=== PATIENT | female | born 1935 | race Caucasian/White ===

== ENCOUNTER 2019-07-25 02:37 | Outpatient (CLI) | payer MEDICARE, OTHER, SELFPAY ==
[2019-07-25 13:32] LABS: Hemoglobin A1C 5.7 % (3.8-5.6)
[2019-07-25 14:24] LABS: TSH 1.15 uIU/mL (0.36-3.74); Vitamin B12 380 pg/mL (193-986)
[2019-07-26 15:28] LABS: Albumin 63.1 % (55.8-66.1); Total Protein 6.3 g/dL (6.3-8.2)
== END 2019-07-25 02:57 ==
PROVIDERS: PCP Emergency Medicine; Visit Provider Emergency Medicine
DX: E11.9 Type 2 diabetes mellitus without complications (principal); E03.9 Hypothyroidism, unspecified; R07.1 Chest pain on breathing
CPT/HCPCS: 36415; 82607; 83036; 84165; 84443

== ENCOUNTER 2020-05-13 01:18 | Outpatient (CLI) | payer MEDICARE, OTHER, SELFPAY ==
--- NOTE | 2020-05-13 06:45 | DI.CT_ITS ---
EXAM: CT THORACIC SPINE WO CLINICAL HISTORY: thoracic back pain,M54.6 TECHNIQUE: COMPARISON: No exams were available for comparison FINDINGS: CT examination of the thoracic spine was performed without contrast administration. There is slight biconvex thoracolumbar scoliosis. There is disc space narrowing throughout the thoracic and upper charli mbar region with vacuum disc phenomenon at multiple levels consistent with disc degeneration. Promin ent endplate hypertrophic changes and to a lesser degree facet changes are noted throughout the thora cic region, most prominent in the lower thoracic region. There is no gross erosive or destructive lesion of the bones. No spinal canal compromise identified by CT criteria. No disc herniation identified by CT criteria. IMPRESSION: Moderate to severe degenerative changes of the thoracic spine. No acute findings. RADIATION DOSE DELIVERED: 387.15mGy.cm Total DLP
== END 2020-05-13 01:38 ==
PROVIDERS: PCP Emergency Medicine; Visit Provider Emergency Medicine
DX: M47.814 Spondylosis without myelopathy or radiculopathy, thoracic region (principal)
CPT/HCPCS: 72128

== ENCOUNTER 2020-06-03 11:00 | Outpatient (CLI) | payer MEDICARE, OTHER, SELFPAY ==
--- NOTE | 2020-06-03 11:00 | RT.EKG_ITS ---
APPROVED REPORT Exam: Resting ECG Patient Location: O HR:87 bpm ECG Measurements Heart Rate 87 AXIS NC 206 P 58 QRSd 99 QRS -61 QT 384 T 38 QTc 463 Conclusion Sinus rhythm...normal P axis, V-rate 60- 99 Supraventricular bigeminy...bigeminy string>4 w/ SV complexes Left anterior fascicular block...axis(240,-40), init forces inf
== END 2020-06-03 11:01 | disposition home or self-care (01) ==
LOC: DI.CM 11:01
PROVIDERS: PCP Emergency Medicine; Visit Provider Emergency Medicine
DX: R00.2 Palpitations (principal)
CPT/HCPCS: 93010

== ENCOUNTER 2021-03-23 12:41 | Outpatient (REF) | payer MEDICARE, OTHER, SELFPAY ==
[2021-03-24 20:53] LABS: Campylobacter PCR Negative (Negative); Salmonella PCR Negative (Negative); Shiga Toxin PCR Negative (Negative); Shigella/Enteroinvasive Ecoli Negative (Negative)
== END 2021-03-23 12:42 | disposition home or self-care (01) ==
LOC: LBN 12:41
PROVIDERS: Family Medicine; PCP Emergency Medicine; Visit Provider Student in an Organized Health Care Education/Training Program
DX: R19.7 Diarrhea, unspecified (principal)
CPT/HCPCS: 87329; 87505

== ENCOUNTER 2021-05-31 11:59 | Emergency (ER) | payer MEDICARE, OTHER, SELFPAY ==
[2021-05-31 12:07] VITALS: BP 147/85; PULSE 84; RESP 18; TEMP 36.5; O2SAT 100
--- NOTE | 2021-05-31 12:30 | DI.CT_ITS ---
Exam(s) CT CERVICAL SPINE WO EXAM: CT CERVICAL SPINE WO CLINICAL HISTORY: weakness LUE, bicep, tricep. TECHNIQUE: Imaging Protocol: Axial computed tomography images with coronal and sagittal reformatted images were created and reviewed COMPARISON: No exams were available for comparison FINDINGS: CERVICAL SPINE: There is no evidence of fracture. No significant prevertebral soft tissue swelling. Multilevel chronic degenerative disc disease and multilevel facet arthropathy evident. Mild degenera tive anterolisthesis C3 upon C4. There is no significant facet joint malalignment. No significant osseous lesions evident. IMPRESSION: Multilevel degenerative changes and degenerative disc disease, most evident at C 5-6 level. No evidence of cervical spine fracture, malalignment, nor acute compromise of the cervical spinal can al. RADIATION DOSE DELIVERED: 311mGy.cm Total DLP DATA REPOSITORY: All CT scans at this facility are submitted to the National Radiology Data Registry (NRDR) Dose Index Registry (DIR) with the [employer] (A[employer]). RADIATION OPTIMIZATION: All CT scans at this facility use at least one of these dose optimization te chniques: automated exposure control; mA and/or kV adjustment per patient size (includes targeted exa ms where dose is matched to clinical indication); or iterative reconstruction.
--- NOTE | 2021-05-31 12:30 | DI.RAD_ITS ---
Exam(s) XR SHOULDER LT COMPLETE 2+V EXAM: XR SHOULDER LT COMPLETE 2+V CLINICAL HISTORY: left shoulder pain. TECHNIQUE: 2D digital imaging was performed. COMPARISON: CR CHEST 2 VIEWS PA,LAT from 11/18/2015 FINDINGS: Five views No evidence of acute fracture or dislocation of the left shoulder-glenohumeral joint. 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 There is also diminution of the subacromial space and superior subluxation of the humeral head in t he glenoid fossa. These findings are most probably consistent with chronic rotator cuff pathology. Also noted are degenerative changes in the AC joint including a 1.4 x 1.0 cm calcification in the sup erior aspect of the AC joint, previously present on chest x-ray of 2016 but increased in size. There is also osteophytic ridge on the inferior articular surface of the acromion which is probably also c ausing an element of impingement on the rotator cuff mechanism. IMPRESSION: No acute fracture or dislocation. However, osteoarthritic degenerative changes as described above an d probable rotator cuff pathology. If clinically indicated this can be further studied with MRI. DATA REPOSITORY: RADIATION DOSE DELIVERED:
[2021-05-31] MEDS: predniSONE 20 MG TAB 40 MG PO (12:49)
--- NOTE | 2021-05-31 13:37 | DI.VRAD_ITS ---
PROCEDURE INFORMATION: Exam: XR Left Shoulder Exam date and time: 05/31/2021 1:07 PM Age: 85 years old Clinical indication: Other: Left shoulder pain TECHNIQUE: Imaging protocol: XR Left shoulder. Views: 2 or more views. COMPARISON: CR CHEST 2 VIEWS PA,LAT 11/18/2015 12:19 PM FINDINGS: Bones/joints: At least moderate osteoarthrosis glenohumeral and acromioclavicular joints. No acute fracture or dislocation. Soft tissues: Unremarkable soft tissues. IMPRESSION: Degenerative changes without acute findings. Dictated and Authenticated by: Gregory Pace MD. Ordering:ALEX Grider MD
--- NOTE | 2021-05-31 13:58 | DI.VRAD_ITS ---
PROCEDURE INFORMATION: Exam: CT Cervical Spine Without Contrast Exam date and time: 05/31/2021 1:13 PM Age: 85 years old Clinical indication: Other: Weakness lue, bicep, tricep TECHNIQUE: Imaging protocol: Computed tomography images of the cervical spine without contrast. Radiation optimization: All CT scans at this facility use at least one of these dose optimization techniques: automated exposure control; mA and/or kV adjustment per patient size (includes targeted exams where dose is matched to clinical indication); or iterative reconstruction. COMPARISON: CT THORACIC SPINE WO 05/13/2020 8:14 AM FINDINGS: Vertebrae: Cervical vertebral body heights are well maintained. Alignment is well preserved without significant listhesis. Uced-cg-genjfbea endplate degenerative changes and facet arthropathy. There are areas of what appear to be up to at least moderate neural foraminal narrowing however this is not well evaluated by CT. MRI would better evaluate if and when clinically appropriate. Soft tissues: Limited evaluation cervical soft tissues unremarkable. Dental: Dental hardware. Trachea: Visualized trachea is clear. Lungs: Minimal biapical lung scarring. Other findings: Limited evaluation intracranial contents unremarkable. IMPRESSION: No acute fracture or dislocation of the cervical spine. Dictated and Authenticated by: Gregory Pace MD. Ordering:ALEX Grider MD
--- NOTE | 2021-05-31 14:17 | ED.GENADUL_ITS ---
Discharge Plan Disposition Patient Disposition: HOME Condition: Stable Discharge Details Clinical Impression: Cervical radiculopathy at C7 Primary Care Provider: Akilah Herring ED Provider: Marni Weaver Home Meds and New Rx's Prescriptions: New prednisone 20 mg tablet 40 mg PO DAILY Qty: 10 0RF Discharge Instructions Additional Instructions: Continue to use shoulder despite sling in her does not become stiff Take prednisone as prescribed, your next dose of tomorrow I suspect you may need an outpatient MRI given the weakness in your arm, suspected from your cervical spine Refrain from any heavy lifting or repetitive motion Please call your cp on Tuesday for very close outpatient follow-up and return earlier should you have new or worsening complaints Referrals: Akilah Herring, DECK ENGINEER [Primary Care Provider] - Discharge Data Discharge Date/Time-TO BE ENTERED AT DEPARTURE: 05/31/21 14:45 Medical Decision Making Patient has obvious weakness to her left upper extremity Strength is 2 out of 5 to her bicep and tricep region Sensation is preserved and DTRs are preserved Hand grasp is intact and symmetrical to bilateral upper extremities Have low suspicion for central process clinically given exam at time of my initial assessment I did order CT cervical spine for screening as we do not have MRI available on the weekends and there is no acute abnormality observed I also ordered an x-ray of patient's left shoulder given her history of discomfort which does not show any acute abnormality I do feel the patient needs close urgent outpatient MRI and I did attempt to order this however secondary to barriers with insurance and prescreening, patient will need an outpatient order from her primary care physician She is placed on the care management list for urgent PCP outpatient reassessment Patient did receive prednisone 40 mg in the emergency department and reassessment she actually had some increased strength, 3 out of 5 to left upper extremity Again I suspect this is peripheral process, however I do think patient needs close reassessment and will provide prednisone for the next several days for radiculopathy and give patient low threshold to return should she have any new or worsening complaints The remainder of her neurological exam did not display any acute abnormality patient was calm, cooperative, with otherwise nonfocal exam aside from left upper extremity involvement discharged home in care of her friend I did consider transfer for MRI, however patient has primary care follow-up availability HPI General Date/Time Provider Initiated Documentation: 05/31/21 12:09 . HPI Narrative: Ms. 85-year-old female presents with left shoulder weakness for the past 24 hours. History of left shoulder pain states she has never had weakness like this aside from when she dislocated her shoulder 20 years ago .denies any known trauma. Denies any pain to her shoulder. States she has had some intermittent pain to the scapular region. denies chest pain or shortness of breath Denies any sensation change. Denies any headache, denies any chest pain or shortness of breath. Denies any dizziness or lower extremity involvement. Denies any difficulties with speech or vision change. Related Data Home Medications Medication Instructions Recorded Confirmed prednisone 20 mg tablet 40 mg PO DAILY #10 tab 05/31/21 Previous Rx's Medication Instructions Recorded prednisone 20 mg tablet 40 mg PO DAILY #10 tab 05/31/21 Allergies Allergy/AdvReac Type Severity Reaction Status Date / Time Latex, Natural Rubber Allergy Intermediate Skin Rash Unverified 05/31/21 12:17 monosodium glutamate Allergy Intermediate RASH, EYES Unverified 05/31/21 12:17 SWELL Sulfa (Sulfonamide Allergy Unknown MOTHER Unverified 05/31/21 12:17 Antibiotics) FROM REACTION, WAS TOLD NOT TO USE codeine AdvReac Intermediate Nausea Unverified 05/31/21 12:18 General Stated Complaint: Orthopedic LISA: 4 Review of Systems All systems reviewed & are unremarkable except as noted in HPI and below PFSH All Active Problems (Updated 05/31/21 @ 14:21 by BROOKLYNN Cui) Cervical radiculopathy at C7 (Acute) Thoracic back pain (Acute) Dropfoot (Acute) Family History (Updated 06/05/20 @ 14:23 by Leigh Vega) Mother , 60'S No problems noted. Father , 80'S No problems noted. Brother , 80'S No problems noted. Social History (Updated 06/05/20 @ 14:21 by Leigh Vega) Smoking/Tobacco Use Status: Never Second Hand Exposure: Yes Smoking risk assessment performed?: Yes Alcohol Intake: current Alcohol Intake frequency: a few times a month Alcohol type: beer and wine Drug use: Occasionally Household members: none Housing: house Pets and animals: Yes Pets and animals: dog(s) Sexually active: No Do you think of yourself as: straight/heterosexual Current gender identity: female What is your relationship status?: How often do you talk on the phone with friends or family?: twice per week How often do you get together with friends or relatives?: once per week How often do you attend sikh or orthodox services?: 1-3 times per year Do you belong to any clubs or organized social groups?: no Panel score (0-1 are the most socially isolated patients): 1 What type of physical activity do you participate in: walking Duration: 45-60 minutes/day Frequency: daily Gauri/Mandaeism: No preference Special gauri needs: No Seatbelt use: always Helmet use: No Drive intox or ride w/intox feeder driver: No Do you feel safe at home: Yes Do you feel safe in your relationship?: Yes Exam Const General: cooperative, comfortable and no acute distress Eyes Pupils: PERRL EOM: EOM intact bilaterally Neck Other: no midline tenderness or carotid bruit Resp Effort & Inspection: normal respiratory effort Auscultation: clear to auscultation bilaterally Cardio Rate: regular rate Rhythm: regular rhythm Other: distal pulses intact Skin General skin exam: no rashes or lesions noted Neuro General: patient alert, patient oriented x3 and CN's II-XI intact bilaterally Cranial Nerves: able to elevate shoulders bilaterally Cognition: normal cognition Speech: speech normal Gait: normal gait Sensory Exam: no sensory deficits noted Other: decreased tricep and bicep strength, 2/5 to left UE, sensation intact, hand grasp intact DTR's intact bilaterally remained of neurological exam wnl I suspect peripheral cause given exam and ordered screening ct cspine as we do not have MRI availability of weekends pt will likely need a cervical spine MRI at the discretion of her provider and I did make an attempt to order this imaging secondary to insurance and screen, we are unable to order outpatient MRI through the ED pt has been placed on care management list for urgent f/u with pcp for reassessment placed on prednisone reassessed post ct cspine and xr, both of which do not exhibit acute abnormality and pt with mild increase in strength to LUE a central process is considered less likely based on my current exam and pt made aware regarding need for close outpatient f/u with low threshold to return with new or worsening complaints Course Vital Signs Vital signs: Vital Signs Temperature 36.5 C 05/31/21 12:07 Pulse 84 05/31/21 12:07 Respiratory Rate 18 05/31/21 12:07 Blood Pressure 147/85 H 05/31/21 12:07 Pulse Oximetry 100 05/31/21 12:07 Temperature 36.5 C 05/31/21 12:07 Temperature Source Temporal Artery Scan 05/31/21 12:07 Pulse 84 05/31/21 12:07 Respiratory Rate 18 05/31/21 12:07 Respiratory Effort Non-Labored 05/31/21 12:16 Blood Pressure 147/85 H 05/31/21 12:07 Blood Pressure Position Supine 05/31/21 12:07 Pulse Oximetry 100 05/31/21 12:07 Oxygen Delivery Method Room Air 05/31/21 12:07 Oxygen Flow Rate 0 05/31/21 12:07 Pain Level 0 05/31/21 12:18 Comment 05/31/21 12:07 PAWSS Have you Been Recently Intoxicated or Drunk Within the Last 30 days?: No Have you Ever Experienced Previous Episodes of Alcohol Withdrawal?: No Have you ever Experienced Withdrawal Seizures?: No Have you ever Experienced Delirium Tremens(DT)s?: No Have you ever undergone Alcohol Rehabilitation Treatment (i.e, inpt ot outpati ent treatment programs)?: No Have you ever Experienced Blackouts?: No Have you ever Combined Alcohol with other Downers within the last 90 days?: No Have you ever Combined Alcohol with any other Substance of Abuse during the last 90 days?: No Positive Blood Alcohol level on Presentation? [PCS.BAL]: No Evidence of Increased Autonomic Activity (i.e. HR>120, tremor, sweating, agitation, nausea)?: No Result: 0
--- NOTE | 2021-06-02 07:43 | NUR.NOTE ---
Accessed patient chart for [facility] information. Nursing Note:
== END 2021-05-31 14:45 | disposition home or self-care (01) ==
PROVIDERS: Emergency Provider Physician Assistant; PCP Nurse Practitioner
DX: M54.12 Radiculopathy, cervical region (principal); M25.512 Pain in left shoulder; M62.81 Muscle weakness (generalized)
CPT/HCPCS: 99284; 72125; 73030; 99283; J7512

== ENCOUNTER → 2021-06-01 01:44 | Outpatient (CLI) | payer MEDICARE, OTHER, SELFPAY ==
--- NOTE | 2021-05-31 15:24 | NUR.NOTE ---
Marni Landeros. Requesting Re- Eval of MRI with PCP in 1 week. CLB
== END ==
PROVIDERS: PCP Nurse Practitioner; Visit Provider Emergency Medicine

== ENCOUNTER → 2021-06-11 01:28 | Outpatient (CLI) | payer MEDICARE, OTHER, SELFPAY ==
--- NOTE | 2021-06-11 07:15 | DI.MRI_ITS ---
Exam(s) MR CERVICAL SPINE WO EXAM: MR CERVICAL SPINE WO CLINICAL HISTORY: Acute left arm weakness and pain,cervical radiculopathy c 7. TECHNIQUE: Multiplanar multisequence MRI was performed. COMPARISON: CT CT CERVICAL SPINE WO from 05/31/2021 FINDINGS: MR examination cervical spine was performed according to the usual protocol. There is mild deformit y of the odontoid which appears to be chronic. Posterior fossa structures appear intact. There is m ild loss of height of intervertebral disc space at C5-6. There is mild prominence of the disc osteop hyte complex at C5-6 without evidence of disc herniation. No disc herniation identified in the cervi jeet region. No evidence of a central canal spinal stenosis. There is neural foraminal stenosis bilaterally at C3-4, C4-5, and C5-6. Probable right-sided neural foraminal narrowing at C6-7. Spinal cord appears normal in diameter throughout the cervical region and shows normal signal. IMPRESSION: Multilevel neural foraminal narrowing as described above. No other significant findings. DATA REPOSITORY:
== END ==
PROVIDERS: PCP Nurse Practitioner; Visit Provider Emergency Medicine
DX: M54.12 Radiculopathy, cervical region (principal); R29.898 Other symptoms and signs involving the musculoskeletal system
CPT/HCPCS: 72141

== ENCOUNTER 2021-09-09 11:23 | Outpatient (CLI) | payer MEDICARE, OTHER, SELFPAY ==
--- NOTE | 2021-09-09 06:00 | DI.RAD_ITS ---
Exam(s) XR PAIN CLINIC CERVICAL SP 2V EXAM: XR PAIN CLINIC CERVICAL SP 2V CLINICAL HISTORY: Dx: Cervical Spondylosis TECHNIQUE: 2D and realtime digital imaging was performed. Radiologist not present. CONTRAST MATERIAL: None. COMPARISON: No exams were available for comparison FINDINGS: Fluoroscopy was provided for pain management therapy. Please refer to procedure report or details. Cumulative dose: Ka,r=3.98 mGy IMPRESSION: RADIATION DOSE DELIVERED:
[2021-09-09 12:07] VITALS: BP 119/79; PULSE 86; RESP 18; TEMP 36.7; O2SAT 97
--- NOTE | 2021-09-09 12:49 | PDOC.PAIN ---
Pain Clinic Procedure Note Procedure Note Procedure Note: CERVICAL MEDIAL BRANCH BLOCKS Mar Bobby has been referred to the [facility] for cervical medial branch blocks. COMMENTS: I previously evaluated her in the office. Her pre-procedure pain VAS was 7/10. Dx: Cervical spondylosis without myelopathy Kanu was interviewed and the medical record reviewed. There were no medical, pharmacologic, radiographic or other structural contraindications to attempting fluoroscopically guided local anesthetic cervical medial branch blocks. Risks and expected side effects as well as potential benefit of the procedure were reviewed with Kanu, and Kanu's voiced concerns addressed. The printed consent form was signed and witnessed. Standard time-out procedure was performed. Kanuwas placed in the prone position on the fluoroscopy table and automated blood pressure cuff and pulse oximeter applied. The skin entry points for approaching the anatomic target points of the segmental medial branches of the left C6, C7, and C8 were identified with fluoroscopy and marked. Following thorough Chlorhexadine preparation of the skin and draping and 1% lidocaine infiltration of the skin entry points and subcutaneous tissues, a 25 gauge spinal needle was placed under fluoroscopic guidance down on to the target point for each respective segmental medial branch. Position was confirmed in A/P and leteral views with 0.25ml of omnipaque 240 injected at each level. At each point 0.3ml 0.5% bupivicaine was injected. Kanu's vital signs were stable throughout the procedure and were as recorded in the docflowsheet by the nursing staff. Follow up plans and appointments were discussed with Kanu. Kanu was instructed to keep careful note of how the usual pain was modified by these injections. Specifically, the patient was asked to keep a pain diary for the next 24 hours using a numeric pain scale of 0-10 and report these results at the follow-up visit. Post procedure instruction was given as documented in the nursing documentation and having met discharge criteria, Pio was discharged from the [facility] Management Center. Based on the medial branches blocked today, if they patient has adequate relief and we are able to proceed to radiofrequency ablation, the treatment should result in the denervation of the Left C6-C7 and C7-T1 FACET JOINTS. We would expect to denervate a total of 2 facets during the radiofrequency ablation. COMMENTS: Post-procedure pain VAS was 0/10 Stefano Daniels DO, MPH [facility]-Pain Management [facility] for [facility] CC: Akilah Herring, PhD PIECE DYE WORKER
[2021-09-09] MEDS: Bupivacaine 0.5% Pres-Free 30 ML VIAL IJ (12:51)
[2021-09-09] MEDS: Omnipaque 240 MG/ML 50 ML BTL IJ (12:51)
[2021-09-09 12:52] VITALS: BP 126/80; PULSE 80; RESP 14; O2SAT 100
== END 2021-09-09 11:24 | disposition home or self-care (01) ==
LOC: PC 11:24
PROVIDERS: PCP Nurse Practitioner; Visit Provider Preventive Medicine Occupational Medicine
DX: M47.812 Spondylosis without myelopathy or radiculopathy, cervical region (principal)
CPT/HCPCS: 64490; 64491; 72040; Q9967

== ENCOUNTER 2021-10-15 10:47 | Outpatient (CLI) | payer MEDICARE, OTHER, SELFPAY ==
--- NOTE | 2021-10-15 06:00 | DI.RAD_ITS ---
Exam(s) XR PAIN CLINIC CERVICAL SP 2V EXAM: XR PAIN CLINIC CERVICAL SP 2V CLINICAL HISTORY: DX: cervical spondylosis. TECHNIQUE: Fluoroscopy was provided for the referring physician for guidance with performing pain cl inic injection procedure. COMPARISON: No exams were available for comparison FINDINGS: Please see procedure note for details. Fluoro time: 54.8 seconds RADIATION DOSE DELIVERED: Yesseniar=3.33 mGy
[2021-10-15 10:57] VITALS: BP 141/92; PULSE 82; RESP 18; TEMP 36.9; O2SAT 98
--- NOTE | 2021-10-15 11:42 | PDOC.PAIN_ITS ---
Pain Clinic Procedure Note Procedure Note Procedure Note: CERVICAL MEDIAL BRANCH BLOCKS #2 Mar Bobby has been referred to the Pain Management Center for cervical medial branch blocks. COMMENTS: She did very well with her first CMBB. Pre-procedure pain VAS was 4/10. Dx: Cervical spondylosis without myelopathy Patient was interviewed and the medical record reviewed. There were no medical, pharmacologic, radiographic or other structural contraindications to attempting fluoroscopically guided local anesthetic cervical medial branch blocks. Risks and expected side effects as well as potential benefit of the procedure were reviewed and voiced concerns addressed. The printed consent form was signed and witnessed. Standard time-out procedure was performed. Patient was placed in the prone position on the fluoroscopy table and automated blood pressure cuff and pulse oximeter applied. The skin entry points for approaching the anatomic target points of the segmental medial branches of left C6, C7, C8, and T1 were identified with fluoroscopy and marked. Following thorough Chlorhexadine preparation of the skin and draping, a 25 gauge 3.5 spinal needle was placed under fluoroscopic guidance down on to the target point for each respective segmental medial branch. Position was confirmed in A/P and leteral views with 0.25ml of omnipaque 240 injected at each level. This revealed appropriate spread and no vascular uptake. At each point 0.3ml 2% Lidocaine was injected. Vital signs were stable throughout the procedure and were as recorded in the docflowsheet by the nursing staff. Follow up plans and appointments were discussed and patient was instructed to keep careful note of how the usual pain was modified by these injections. Specifically, the patient was asked to keep a pain diary for the next 24 hours using a numeric pain scale of 0-10 and report these results at the follow-up visit. Post procedure instruction was given as documented in the nursing documentation and having met discharge criteria, and was discharged from the Pain Management Center. Based on the medial branches blocked today, if they patient has adequate relief and we are able to proceed to radiofrequency ablation, the treatment should result in the denervation of the left C6-C7, C7-T1, and T1-T2 FACET JOINTS. We would expect to denervate a total of 3 facets during the radiofrequency ablation. COMMENTS: Post-procedure pain VAS was 0/10. Stefano Daniels DO, MPH [facility]Pain Management [facility]-Center for Pain Management CC: Akilah Herring, PhD DIRECTOR VISUAL
[2021-10-15] MEDS: Lidocaine 2% Pres-Free 5 ML VIAL IJ (11:43)
[2021-10-15] MEDS: Omnipaque 240 MG/ML 50 ML BTL IJ (11:43)
[2021-10-15 11:50] VITALS: BP 140/81; PULSE 68; RESP 14; O2SAT 100
== END 2021-10-15 10:48 | disposition home or self-care (01) ==
LOC: PC 10:48
PROVIDERS: PCP Nurse Practitioner; Visit Provider Preventive Medicine Occupational Medicine
DX: M47.812 Spondylosis without myelopathy or radiculopathy, cervical region (principal); M54.2 Cervicalgia
CPT/HCPCS: 64490; 64491; 64492; 72040; Q9967

== ENCOUNTER 2021-10-28 09:28 | Outpatient (CLI) | payer MEDICARE, OTHER, SELFPAY ==
--- NOTE | 2021-10-28 06:00 | DI.RAD_ITS ---
Exam(s) XR PAIN CLINIC CERVICAL SP 2V EXAM: XR PAIN CLINIC CERVICAL SP 2V CLINICAL HISTORY: Dx: Cervical Spondylosis TECHNIQUE: 2D and realtime digital imaging was performed. Radiologist not present. CONTRAST MATERIAL: None. COMPARISON: No exams were available for comparison FINDINGS: Fluoroscopy was provided for pain management therapy. Please refer to procedure report or details. Cumulative dose: Ka,r=5.54 mGy IMPRESSION: RADIATION DOSE DELIVERED:
[2021-10-28 09:44] VITALS: BP 152/94; PULSE 70; RESP 16; TEMP 36.7; O2SAT 98
[2021-10-28] MEDS: fentaNYL 100 MCG/2 ML VIAL IVP (10:28)
[2021-10-28] MEDS: Midazolam 2 MG/2 ML VIAL IVP (10:28)
[2021-10-28] MEDS: Lactated Ringers 500 ML 80 ML IV (10:34)
[2021-10-28 10:59] VITALS: BP 160/91; PULSE 63; RESP 16; O2SAT 98
[2021-10-28] MEDS: Lidocaine 2% Pres-Free 5 ML VIAL IJ (11:14)
[2021-10-28] MEDS: Bupivacaine 0.5% Pres-Free 10 ML VIAL IJ (11:14)
[2021-10-28] MEDS: Dexamethasone Sod. Phos./Pres-Free 10 MG/ML VIAL IJ (11:14)
--- NOTE | 2021-10-28 12:05 | PDOC.PAIN_ITS ---
[facility] Procedure Note Procedure Note Procedure Note: Cervical Radiofrequency with Coolief Machine PROCEDURE NOTE Date of Service: October 28, 2021 Patient: Mar Bobby Provider: Stefano Daniels DO, MPH Pre Operative Diagnosis: Cervical Spondylosis without Myelopathy Post Operative Diagnosis: Same Pre-procedure pain: VAS 10/10 PROCEDURE: 1. Left C6-C7 facet joint radiofrequency denervation 2.Left C7-T1 facet joint radiofrequency denervation 3.Left T1-T2 facet joint radiofrequency denervation Mar Bobby was brought to the operating room and placed on the exam table in a comfortable lateral recumbant position. The place for the needle placement was obtained by manual palpation as well as radiographic confirmation. The sterile field was prepped by chlorhexidine and sterile drapes. Local anesthesia, both superficial and deep was provided by local infiltration of 3 ml Lidocaine 1%. Using fluoroscopic guidance, A 17g 75 mm radiofrequency introducer needle with a 2 mm active tip was placed overlying the left C6 cervical vertebra from the lateral approach and was advanced until bony contact was felt with the articular pillar. Attempted aspiration revealed no blood or cerebrospinal fluid. Motor testing was then performed with 2.0 volts and no upper extremity motor stimulation was observed. 1 ml of 2% Lidocaine was injected through the RF needle. A radiofrequency lesion of the left medial branch of C6 was then performed at 80 degrees Celsius for 2 minutes and 30 seconds. The same procedure was repeated for LEFT C7, C8 and T1 medial branches. The procedure was for the left C6-C7, C7-T1, and T1-T2 facet joint levels. A total of 3 facet joints were ablated today. POST PROCEDURE EVALUATION: Follow up plans and appointments were discussed with the Mar . Post procedure instruction was given as documented in nursing documentation and having met dis charge criteria, Mar was [facility]. COMMENTS: No apparent complications. Post-procedure pain: VAS= 1/10. I personally performed this entire procedure. Stefano Daniels DO, MPH Attending Physician Pain Management
== END 2021-10-28 09:29 | disposition home or self-care (01) ==
LOC: PC 09:29
PROVIDERS: PCP Nurse Practitioner; Visit Provider Preventive Medicine Occupational Medicine
DX: M47.812 Spondylosis without myelopathy or radiculopathy, cervical region (principal); M54.2 Cervicalgia
CPT/HCPCS: 64633; 64634; 72040; J2250; J3010